=== PATIENT | female | born 1940 | race Caucasian/White ===

== ENCOUNTER → 2018-12-03 | Outpatient (CLI) | payer MEDICARE, OTHER ==
--- NOTE | 2018-12-03 17:07 | REP ---
Hand series: Four views. History: Contusion. No comparison imaging. 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 There are erosive changes at the PIP joints of the long, ring and small finger as well. There is advanced osteoarthritis at the first carpometacarpal articulation. 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 There is diffuse osteopenia. There is no evidence of fracture or subluxation. 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 No fracture or traumatic abnormality noted. Electronically Signed by Severiano Thomas MD 12/03/2018 05:33 P
== END ==
LOC: M ADAMS 11:15
PROVIDERS: ATTEND Physician Assistant Medical
DX: S60.221A Contusion of right hand, initial encounter (principal); Y92.9 Unspecified place or not applicable; X58.XXXA Exposure to other specified factors, initial encounter; Y99.9 Unspecified external cause status; Y93.9 Activity, unspecified

== ENCOUNTER → 2020-05-16 | Outpatient (CLI) | payer SELFPAY | LOC: M LABSMTC 10:11 | PROVIDERS: ATTEND Family Medicine | DX: Z20.828 Contact with and (suspected) exposure to other viral communicable diseases (principal) ==

== ENCOUNTER → 2020-05-19 | Outpatient (REF) | payer MEDICARE, BC, OTHER ==
[2020-05-20 17:14] LABS: Lyme Disease IgG/IgM Antibodie <0.91 ISR (0.00-0.90); Lyme Disease IgM Ab Quantitati <0.80 index (0.00-0.79)
== END ==
LOC: M LAB REF 11:18
PROVIDERS: ATTEND Nurse Practitioner Adult Health
DX: S70.361A Insect bite (nonvenomous), right thigh, initial encounter (principal); M79.671 Pain in right foot; X58.XXXA Exposure to other specified factors, initial encounter; Y92.89 Other specified places as the place of occurrence of the external cause

== ENCOUNTER → 2021-05-24 | Outpatient (CLI) | payer MEDICARE, BC, OTHER ==
--- NOTE | 2021-05-24 15:39 | REP ---
INDICATION: PAIN. COMPARISON: None. TECHNIQUE: Two views FINDINGS: There is no acute fracture or destructive osseous lesion. There is a plantar calcaneal heel spur. IMPRESSION: As above <Electronically signed by Kalpesh Castillo > 05/24/21 [id number]
--- NOTE | 2021-05-24 15:41 | REP ---
INDICATION: PAIN. COMPARISON: None. TECHNIQUE: Four views FINDINGS: There is advanced asymmetric intra digital joint space narrowing particularly affecting the interphalangeal joint of the 1st digit and the D IP joints of the remainder of the digits particularly the 3rd and 4th digits. There is a prominent marginal osteophytosis involving all distal interphalangeal joints and the interphalangeal joint of the 1st digit. More moderate changes are seen involving all proximal interphalangeal joints. There is no periarticular osteopenia. There are no marginal erosions. Chronic changes seen involving the wrist particularly the 1st carpometacarpal joint where there is heavy marginal osteophytosis and irregular joint space narrowing. This is seen in limited fashion on this hand exam. IMPRESSION: Advanced chronic changes as described above. <Electronically signed by Kalpesh Castillo > 05/24/21 [id number]
== END ==
LOC: M WUC 15:16
PROVIDERS: ATTEND Nurse Practitioner Adult Health
DX: M79.642 Pain in left hand (principal); M77.31 Calcaneal spur, right foot

== ENCOUNTER 2023-01-24 14:15 | Emergency (ER) | payer MEDICARE, BC, OTHER ==
[~2023-01-24] VITALS: Ht 157.5 cm; Wt 70.7 kg
[2023-01-24 15:42] LABS: BASO % 0.6 % (0.0-1.0); EOS # 0.2 10^3/uL (0.0-0.5); EOS % 2.7 % (0.0-3.0); HEMATOCRIT 39.6 % (36.0-47.0); LYMPH # 1.5 10^3/uL (1.5-5.0); LYMPH % 24.4 % (24.0-44.0); MEAN CORPUSCULAR HEMOGLOBIN 30.5 pg (27.0-33.0); MEAN CORPUSCULAR HGB CONC 32.8 g/dl (32.0-36.5); MONO # 0.5 10^3/uL (0.0-0.8); MONO % 7.8 % (2.0-8.0); NEUTROPHILS % 64.2 % (36.0-66.0); PLATELET COUNT, AUTOMATED 210 10^3/uL (150-450); RED BLOOD COUNT 4.26 10^6/uL (4.00-5.40); WHITE BLOOD COUNT 6.3 10^3/uL (4.0-10.0)
[2023-01-24 16:11] LABS: BLOOD UREA NITROGEN 16 MG/DL (9-23); CALCIUM LEVEL 9.5 MG/DL (8.3-10.6); CARBON DIOXIDE LEVEL 26 MMOL/L (20-31); CHLORIDE LEVEL 109 MMOL/L (98-107); CREATININE FOR GFR 0.78 MG/DL (0.55-1.30); GLOMERULAR FILTRATION RATE > 60.0 (>32); GLUCOSE, FASTING 85 MG/DL (74-106); SODIUM LEVEL 142 MMOL/L (136-145)
[2023-01-24 16:14] LABS: THYROID STIMULATING HORMONE 1.465 uIU/ML (0.55-4.78)
[2023-01-24] MEDS ORDERED: Physical Therapy (17:14)
[2023-01-24 17:23] VITALS: BP 150/68
== END 2023-01-24 17:43 | disposition home or self-care (01) ==
LOC: M ED 14:15
DX: H81.4 Vertigo of central origin (principal); E78.00 Pure hypercholesterolemia, unspecified

== ENCOUNTER → 2024-11-25 | Outpatient (REF) | payer MEDICARE, OTHER ==
[~2024-11-25] MED LIST: Physical Therapy
== END ==
LOC: M SFHCDERM 17:54
PROVIDERS: ATTEND Physician Assistant
DX: D48.9 Neoplasm of uncertain behavior, unspecified (principal)

== ENCOUNTER 2024-12-25 09:29 | Emergency (ER) | payer MEDICARE, OTHER ==
[~2024-12-25] VITALS: Ht 160 cm; Wt 70.2 kg
[2024-12-25 09:33] VITALS: TEMP 98.1
[2024-12-25 11:18] LABS: BASO % 0.6 % (0.0-1.0); EOS # 0.2 10^3/uL (0.0-0.5); EOS % 2.6 % (0.0-3.0); HEMATOCRIT 38.6 % (36.0-47.0); HEMOGLOBIN 12.8 g/dl (12.0-15.5); LYMPH # 1.8 10^3/uL (1.5-5.0); LYMPH % 26.7 % (24.0-44.0); MEAN CORPUSCULAR HEMOGLOBIN 31.1 pg (27.0-33.0); MEAN CORPUSCULAR HGB CONC 33.2 g/dl (32.0-36.5); MEAN CORPUSCULAR VOLUME 93.7 fl (80.0-96.0); MONO # 0.6 10^3/uL (0.0-0.8); MONO % 8.6 % (2.0-8.0); PLATELET COUNT, AUTOMATED 229 10^3/uL (150-450); RED BLOOD COUNT 4.12 10^6/uL (4.00-5.40); WHITE BLOOD COUNT 6.6 10^3/uL (4.0-10.0)
[2024-12-25 11:28] LABS: ERYTHROCYTE SEDIMENTATION RATE 38 mm/hr (0-30)
[2024-12-25 11:33] VITALS: BP 131/59; O2SAT 96
[2024-12-25 11:33] LABS: INR 0.94; PARTIAL THROMBOPLASTIN TIME 27.7 SECONDS (24.8-34.2); PROTHROMBIN TIME 12.9 SECONDS (12.5-14.5)
[2024-12-25 11:48] LABS: C REACTIVE PROTEIN QUANTITATIV 0.8 MG/DL (<1.0)
[2024-12-25 11:49] LABS: ALBUMIN 3.5 G/DL (3.2-5.2); BILIRUBIN,DIRECT 0.1 MG/DL (<0.4); BILIRUBIN,TOTAL 0.4 MG/DL (0.3-1.2); CALCIUM LEVEL 10.1 MG/DL (8.3-10.6); CREATININE FOR GFR 0.8 MG/DL (0.55-1.30); GLOMERULAR FILTRATION RATE 72.6 (>32); POTASSIUM SERUM 4.7 MMOL/L (3.5-5.1); TOTAL PROTEIN 6.9 G/DL (5.7-8.2)
[2024-12-25] MEDS ORDERED: PRED20TA PO (12:23)
== END 2024-12-25 12:36 | disposition home or self-care (01) ==
LOC: M ED 09:29
DX: M71.22 Synovial cyst of popliteal space [Baker], left knee (principal); Z79.52 Long term (current) use of systemic steroids

== ENCOUNTER → 2025-04-20 | Outpatient (REF) | payer MEDICARE, OTHER ==
[~2025-04-20] MED LIST changes: +PRED20TA PO
== END ==
LOC: M LAB REF 12:06
PROVIDERS: ATTEND Nurse Practitioner Adult Health
DX: Z80.41 Family history of malignant neoplasm of ovary (principal)

== ENCOUNTER → 2025-06-25 | Outpatient (REF) | payer MEDICARE, OTHER ==
[2025-06-29 16:41] LABS: BORRELIA SPECIES DNA NOT DETECTED (NOT DETECT)
== END ==
LOC: M LAB REF 12:32
DX: Z11.9 Encounter for screening for infectious and parasitic diseases, unspecified (principal)